=== PATIENT | female | born 2000 | race Caucasian/White ===

== ENCOUNTER → 2023-10-07 11:12 | Outpatient (BNVA) | payer BC, SELFPAY | PROVIDERS: Family Provider Physician Assistant Medical; Visit Provider Emergency Medicine | DX: J02.9 Acute pharyngitis, unspecified (principal); B34.9 Viral infection, unspecified | CPT/HCPCS: 87071; 87880 ==

== ENCOUNTER 2024-11-04 11:39 | Outpatient (CLI) | payer BC, SELFPAY ==
[2024-11-04 12:54] LABS: Alanine Aminotransferase 13 U/L (0-33); Albumin Level 4.7 g/dL (3.5-5.2); Alkaline Phosphatase 50 U/L (35-105); Aspartate Amino Transferase 13 U/L (0-32); Cholesterol 175 mg/dL (0-200); Globulin 2.9 g/dL (1.3-4.6); HDL Cholesterol 70 mg/dL (60-100); LDL Cholesterol Calculated 83 mg/dL (50-129); LDL HDL Ratio 1.19 RATIO (0.00-3.22); Total Bilirubin 0.3 mg/dL (0.15-1.2); Total Protein 7.6 g/dL (6.6-8.7); Triglycerides 112 mg/dL (0-150)
[2024-11-04 13:20] LABS: HIV 1 & 2 Antibody Non-Reactive (Non-Reactiv); HIV 1 & 2 Antigen Non-Reactive (Non-Reactiv)
[2024-11-04 13:25] LABS: Hepatitis A Antibody IgM Non-Reactive (Nonreactive); Hepatitis B Core AB, Total Non-Reactive (Nonreactive); Hepatitis B Surface AB < 3.5 (11.5-1000); Hepatitis B Surface Antigen Non-Reactive (Nonreactive); Hepatitis C Virus Antibody Non-Reactive (Nonreactive)
== END 2024-11-04 11:40 | disposition home or self-care (01) ==
LOC: LAB 11:45
PROVIDERS: Family Provider Physician Assistant Medical; Visit Provider Nurse Practitioner Family
DX: L40.4 Guttate psoriasis (principal)
CPT/HCPCS: 36415; 80061; 80076; 86480; 86705; 86706; 86709; 86803; 87340; 87806